=== PATIENT | female | born 2000 | race Two or more races ===

== ENCOUNTER 2025-01-04 00:40 | Emergency (ER) | payer OTHER ==
[~2025-01-04] VITALS: Ht 162.6 cm; Wt 61.2 kg
[2025-01-04 00:57] VITALS: BP 127/70; TEMP 98.1; O2SAT 97
== END 2025-01-04 00:59 ==
LOC: ER 00:48
DX: R45.6 Violent behavior (principal); Z60.2 Problems related to living alone